=== PATIENT | female | born 2000 | race Asian ===

== ENCOUNTER 2018-01-14 20:11 | Emergency (ER) | payer BC ==
[2018-01-14 20:54] VITALS: BP 94/63
--- NOTE | 2018-01-14 22:14 | UC ---
Complaint Female HPI - HPI Summary HPI Summary: 17 y/o female presents to the urgent care c/o frequency and burning on urination w/ mild lower back pain and pelvic pain since today. She reports she was Dx w/ UTI over the phone by [facility] and Rx Nitrofurantoin PO x 5 days. Last dose taken 01/11/2018. she was not physically examined and no UA done. She took the ABx and symptoms improved. However symptoms returned today. She thinks her period began today. Her menstrual cycles are irregular. She is not sexually active yet. So she is unsure if blood is in the urine of per vagina. Pain is 6/10 w/ urination. She has not taking anything to alleviate symptoms today. Pt denies fever, SOB, chest pain, abdominal pain, flank pain, N/V/D - History Of Current Complaint Chief Complaint: UCGU Stated Complaint: UTI Time Seen by Provider: 01/14/18 21:57 Hx Obtained From: Patient Hx Last Menstrual Period: 01/14/18 ?: No Onset/Duration: Gradual Onset, Lasting Weeks - 1 week, Still Present, Worse Since - today Timing: Intermittent, Lasting Seconds Severity Initially: Mild Severity Currently: Mild Pain Intensity: 6 Pain Scale Used: 0-10 Numeric Character: Burning Aggravating Factor(s): Urination Alleviating Factor(s): Other - ABXs Associated Signs And Symptoms: Positive: Back Pain, Vaginal Bleeding/Discharge. Negative: Fever, Nausea, Vomiting(# Of Episodes =) - Risk Factors Ectopic Risk Factor: Negative Ovarian Torsion Risk Factor: Negative - Allergies/Home Medications Allergies/Adverse Reactions: Allergies Allergy/AdvReac Type Severity Reaction Status Date / Time No Known Allergies Allergy Verified 01/14/18 20:45 PMH/Surg Hx/FS Hx/Imm Hx Previously Healthy: Yes - Pt denies PMHX - Surgical History Surgical History: None - Family History Known Family History: Positive: None - Pt denies FMHX - Social History Occupation: Student Lives: With Family Alcohol Use: None Substance Use Type: None Smoking Status (MU): Never Smoked Tobacco - Immunization History Vaccination Up to Date: Yes Review of Systems Constitutional: Negative Skin: Negative Eyes: Negative ENT: Negative Respiratory: Negative Cardiovascular: Negative Gastrointestinal: Other - pelvic pain Genitourinary: Dysuria, Hematuria, Frequency, Urgency Motor: Negative Neurovascular: Negative Musculoskeletal: Other: - lower back pain Neurological: Negative Psychological: Negative Is Patient Immunocompromised?: No All Other Systems Reviewed And Are Negative: Yes Physical Exam - Summary Physical Exam Summary: Vital signs: reviewed General: well developed, well nourished female adolescent sitting in the examining table w/o any acute distress. Head: Normocephalic, no lesions. Eyes: PERRLA, EOM's full, conjunctiva clear, fundi grossly normal. Ears: EAC's clear, TM's normal. Nose: Mucosa normal, no obstruction. Throat: Clear, no exudates, no lesions. Neck: Supple, no masses, no thyromegaly, no bruits. Chest: Lungs clear, no rales, no rhonchi, no wheezes. Heart: RR, no murmurs, no rubs, no gallops. Abdomen : Nontender, Flat with no distention. No surface trauma, scars, incisions. hyperactive bowel sounds present in all four quadrants. No tenderness, guarding, rigidity to palpation. No masses palpated, no pulsation in epigastric area. No organomegaly. Negative Helm signs. No periumbilical tenderness. No rebound in the lower quadrants. NT over McBurneys point. Mild suprapubic tenderness with no distension. Good femoral pulses bilaterally. No hernia noted. No CVAT bilaterally. : Normal, no lesions, no discharge, no hernias noted. Pelvic: I was assisted by nurse Mary. External genitalia within normal limits. There is no lesions there is no masses noted. Urethra w/ mild erythema. No Speculum exam performed since Pt is not sexually active yet. Exteranl genitalia cleaned w/ a cotton swab and discrete vaginal bleeding perfomed. Most likely Pt' s menstrual cycle.. Rectal: No lesions, no hemorrhoids, Back: Normal curvature, no tenderness. Extremities: FROM, no deformities, no edema, no erythema. Neuro: Physiological, no localizing findings. Skin: Normal, no rashes, no lesions noted. Triage Information Reviewed: Yes Vital Signs: Initial Vital Signs Temp 98.5 F 01/14/18 20:45 Pulse 78 01/14/18 20:45 Resp 18 01/14/18 20:45 BP 94/63 01/14/18 20:45 Pulse Ox 99 01/14/18 20:45 Complaint Female Dx - Course Course Of Treatment: 17 y/o female presents to the urgent care c/o frequency and burning on urination w/ mild lower back pain and pelvic pain since today. She reports she was Dx w/ UTI over the phone by [facility] and Rx Nitrofurantoin PO x 5 days. Last dose taken 01/11/2018. she was not physically examined and no UA done. She took the ABx and symptoms improved. However symptoms returned today. She thinks her period began today. Her menstrual cycles are irregular. She is not sexually active yet. So she is unsure if blood is in the urine or per vagina. Pain is 6/10 w/ urination. She has not taking anything to alleviate symptoms today. Pt denies fever, SOB, chest pain, abdominal pain, flank pain, N/V/D. Hx obtained. Pt's vaginal bleeding is probably her menstrual cycle. PE: WNL. UA results: Blood 3+, Leukoesterase 3+. Pt Rx Bactrim PO x 3 days. Pyridium 100mg PO TID x 2 days. First dose given at the clinic tonight. Pt Advised to increase fluid intake. Urine sent for culture if any abnormality Pt will be notified for further treatment. Pt advised If symptoms do not improve to return to the urgent care or f/u with PCP. Pt understood and agreed. Left the clinic ambulating. - Differential Dx/Diagnosis Differential Diagnosis/HQI/PQRI: Cervicitis, Ovarian Cyst, Ovarian Torsion, Pelvic Inflammatory Disease, Renal Colic, Sexually Transmitted Disease, Ureteral Stone, Urinary Tract Infection Provider Diagnoses: 1- Urinary tract infection. 2- Dysuria Discharge - Sign-Out/Discharge Documenting (check all that apply): Discharge - Discharge Plan Condition: Stable Disposition: HOME Prescriptions: Phenazopyridine TAB* [Pyridium 100 mg TAB*] 100 mg PO TID #5 tab Sulfamethox/Trimethoprim DS* [Bactrim DS 800/160 TAB*] 1 tab PO BID #5 tab Patient Education Materials: Urinary Tract Infection in Women (ED), Dysuria (ED ) [facility]errals: [facility] [Primary Care Provider] - 3 Days Additional Instructions: 1- Please take Bactrim 100mg PO x 3 days. Pyridium 100 mg PO TID x 2 days to alleviate urinary symptoms. First dose given today at the clinic. Increase increase fluid intake. drink cranberry juice. 2-Urine sent for culture if any abnormality, you will be notified for further treatment. 3-If symptoms do not improve please return to the urgent care or f/u with her PCP. - Billing Disposition and Condition Condition: STABLE Disposition: HOME
[2018-01-14] MEDS ORDERED: Sulfamethox/Trimethoprim DS 800/160* TAB PO ONE (22:31)
[2018-01-14] MEDS ORDERED: Phenazopyridine TAB* 100 MG PO ONE (22:32)
--- NOTE | 2018-01-17 15:49 | UC ---
- Progress Note Progress Note: Urine final results with E. Coli RESISTANT to bactrim. Given that she has been on macrobid and now bactrim in the last 30 days - will switch her to Augmentin 1 tab BID for 5 days. Discharge - Sign-Out/Discharge Documenting (check all that apply): Post-Discharge Follow Up - Discharge Plan Condition: Stable Disposition: HOME Prescriptions: Amoxicillin/Clavulanate TAB* [Augmentin TAB 875*] 875 mg PO BID #10 tab Phenazopyridine TAB* [Pyridium 100 mg TAB*] 100 mg PO TID #5 tab Sulfamethox/Trimethoprim DS* [Bactrim DS 800/160 TAB*] 1 tab PO BID #5 tab Patient Education Materials: Urinary Tract Infection in Women (ED), Dysuria (ED ) [facility] Additional Instructions: 1- Please take Bactrim 100mg PO x 3 days. Pyridium 100 mg PO TID x 2 days to alleviate urinary symptoms. First dose given today at the clinic. Increase increase fluid intake. drink cranberry juice. 2-Urine sent for culture if any abnormality, you will be notified for further treatment. 3-If symptoms do not improve please return to the urgent care or f/u with her PCP. - Billing Disposition and Condition Condition: STABLE Disposition: HOME
== END 2018-01-14 22:45 | disposition home or self-care (01) ==
LOC: UCEAST 20:11
DX: N39.0 Urinary tract infection, site not specified (principal); B96.20 Unspecified Escherichia coli [E. coli] as the cause of diseases classified elsewhere; R31.9 Hematuria, unspecified; R30.0 Dysuria; Z87.440 Personal history of urinary (tract) infections
CPT/HCPCS: 81003; 87077; 87086; 87186; 99203; A9270-GY; G0463